=== PATIENT | male | born 1970 | race Caucasian/White ===

== ENCOUNTER 2023-12-08 07:02 | Outpatient (OUT) | payer OTHER, SELFPAY ==
[2023-12-08 07:25] LABS: Basophils Absolute Auto 0.1 10^3/uL (0.0-0.1); Basophils Percent Auto 1.2 % (0.2-2.0); Eosinophils Absolute Auto 0.5 10^3/uL (0.0-0.7); Eosinophils Percent Auto 7.2 % (0.9-7.0); Hematocrit 45.5 % (42.0-54.0); Hemoglobin 15.8 g/dL (14.0-18.0); Immature Granulocytes Abs Auto 0.01 10^3/uL (0.00-0.03); Immature Granulocytes Pct Auto 0.1 % (0.0-0.5); Lymphocytes Absolute Auto 2.4 10^3/uL (1.2-3.8); Lymphocytes Percent Auto 34.6 % (20.5-60.0); Mean Corpuscular HGB Conc 34.7 g/dL (29.9-35.2); Mean Corpuscular Volume 92.3 fL (80.0-94.0); Mean Platelet Volume 9.3 fL (9.5-13.5); Monocytes Absolute Auto 0.6 10^3/uL (0.3-0.8); Monocytes Percent Auto 8.4 % (1.7-12.0); Neutrophils Absolute Auto 3.3 10^3/uL (1.4-6.5); Neutrophils Percent Auto 48.5 % (43.0-75.0); Platelet Count 228 10^3/uL (150-450); Red Blood Count 4.93 10^6/uL (4.70-6.10); Red Cell Distribution Width 12.8 % (11.0-15.0); White Blood Count 6.8 10^3/uL (4.0-11.0)
[2023-12-08 09:15] LABS: Alanine Aminotransferase 49 U/L (16-63); Albumin Globulin Ratio 1.1; Alkaline Phosphatase 88 U/L (46-116); Anion Gap 15.6; Aspartate Amino Transferase 29 U/L (15-37); BUN Creatinine Ratio 14.3; Bilirubin Total 0.9 mg/dL (0.2-1.0); Calcium 9.4 mg/dL (8.5-10.1); Chloride 106 mmol/L (98-107); Chol HDL Ratio 5.6; Cholesterol 202 mg/dL (<=200); Estimated GFR (African America >60 (>=60); Estimated GFR (Non-African Ame >60 (>=60); Globulin 3.6 g/dL; Glucose 109 mg/dL (74-106); HDL Cholesterol 36 mg/dL (40-60); Potassium 3.6 mmol/L (3.5-5.1); Sodium 145 mmol/L (136-145); Thyroid Stimulating Hormone 1.993 uIU/mL (0.358-3.740); Total Protein 7.6 g/dL (6.4-8.2); Triglycerides 96 mg/dL (<=150); VLDL CHOLESTEROL 19.2 mg/dL
[2023-12-08 09:29] LABS: Prostate Specific Antigen Scrn 3.16 ng/mL (<=4.00)
== END 2023-12-08 07:03 | disposition home or self-care (01) ==
PROVIDERS: PCP Nurse Practitioner; Visit Provider Nurse Practitioner
DX: Z00.00 Encounter for general adult medical examination without abnormal findings (principal)
CPT/HCPCS: 36415; 80053; 80061; 84443; 85025; G0103

== ENCOUNTER 2024-03-15 10:35 | Outpatient (OUT) | payer OTHER, SELFPAY ==
--- OUTSIDE RECORDS SUMMARY | 2024-03-15 10:39 | XMS_ITS | CCD ---
Author Organization [facility] Team Providers Care Operations Intelligence Superintendent Name Role Phone EBRAHEIM, JUSTYN Unavailable Unavailable EBRAHEIM, JUSTYN Unavailable Unavailable KHAN, JULIANNA Unavailable Unavailable KHAN, JULIANNA Unavailable Unavailable [place] Unavailable Unavailable EBRAHEIM, JUSTYN Unavailable Unavailable [place] Unavailable Unavailable CASABIANCA AMBER Unavailable Unavailable ANTOINE, BEATRIZ Unavailable Unavailable ANTOINE, BEATRIZ Unavailable Unavailable KHAN, JULIANNA Unavailable Unavailable KHAN, JULIANNA Unavailable Unavailable ANTOINE, BEATRIZ Unavailable Unavailable ANTOINE, BEATRIZ Unavailable Unavailable KHAN, JULIANNA Unavailable Unavailable KHAN, JULIANNA Unavailable Unavailable DANNIE, KALPESH M Unavailable Unavailable DANNIE, KALPESH M Unavailable Unavailable UNKNOWN, PHYSICIAN Unavailable Unavailable KHAN, JULIANNA Unavailable Unavailable DANNIE, KALPESH M Unavailable Unavailable DANNIE, KALPESH M Unavailable Unavailable DANNIE, KALPESH M Unavailable Unavailable KHAN, JULIANNA Unavailable Unavailable DANNIE, KALPESH M Unavailable Unavailable DANNIE, KALPESH M Unavailable Unavailable KHAN, JULIANNA Unavailable Unavailable KHAN, JULIANNA Unavailable Unavailable Kin [place] Unavailable KHAN ., DR JULIANNA Brooks Admitting Unavailable KHAN ., DR JULIANNA Brooks Attending Unavailable KHAN ., DR JULIANNA Brooks Primary Care Unavailable KHAN ., DR JULIANNA Brooks Admitting Unavailable KHAN ., DR JULIANNA Brooks Attending Unavailable KHAN ., DR JULIANNA Brooks Primary Care Unavailable KHAN ., DR JULIANNA Brokos Consulting Unavailable Tiara Carter Attending Unavailable Tiara Carter Attending Unavailable Tiara Carter Attending Unavailable Tiara Carter Attending Unavailable Allergies Allergy Classification Reported Allergen(s) Allergy Type Date of Onset Reaction(s) Facility (1 source) No Known Medication Allergies; Translations: [No Known Medication Allergies] Propensity to adverse reactions (disorder) [facility] Repository Medications Current Medications Medication Drug Class(es) Dates Sig (Normalized) Sig (Original) bisoprolol fumarate 10 mg / hydroCHLOROthiazide 6.25 mg oral tablet (2 sources) Thiazide Diuretic, beta-Adrenergic Casey take 1 tablet by mouth every twenty-four hours Bisoprolol-hydro CHLOROthiazide 10-6.25 MG 1 tablet Orally Once a day Active diclofenac sodium 0.01 mg/mg topical gel (2 sources) Nonsteroidal Anti-inflammatory Drug Start: 06-18-2020 Diclofenac Sodium 1 % apply a pea sized amount to the affected area two to four times a day Transdermal for 30 days Jun, Active ibuprofen 800 mg oral tablet (2 sources) Nonsteroidal Anti-inflammatory Drug take 1 tablet by mouth three times daily at mealtime as needed Ibuprofen 800 MG TAKE 1 TABLET BY MOUTH THREE TIMES A DAY WITH FOOD OR MILK NEEDED for 30 Active latanoprost 0.05 mg/ml ophthalmic solution (2 sources) Prostaglandin Analog take 1 drop(s) into the eye(s) once daily in the evening Latanoprost 0.005 % 1 drop into affected eye in the evening Ophthalmic Once a day Active lidocaine 0.05 mg/mg medicated patch (2 sources) Antiarrhythmic, Amide Local Anesthetic Start: 11-05-2020 apply 1 dose transdermal route once daily Lidocaine 5 % Cut patch to size and apply to affected area Externally Once a day for 30 days Oct, Active Multi Complete (2 sources) Multi Complete Active Tumersaid (2 sources) Tumersaid Active Vitamin D3 (2 sources) Vitamin D3 Active Completed/Discontinued Medications Medication Drug Class(es) Dates Sig (Normalized) Sig (Original) gabapentin 300 mg oral capsule (2 sources) Anti-epileptic Agent Start: 01-06-2021 take 1 capsule by mouth three times daily Gabapentin 300 MG 1 capsule Orally three times daily for 30 day(s) December, Not-Taking Problems Active Problems Problem Classification Problem Date Documented Da te Episodic/Chronic Essential hypertension (6 sources) Hypertensive disorder; Translations: [Hypertension, unspecified] Onset: 11-17-2022 Chronic External cause codes: Natural/environment (1 source) Exposure to other specified factors, initial encounter; Translations: [EXPOSURE TO OTHER SPECIFIED FACTORS, INITIAL ENCOUNTER] Onset: 03-15-2018 External cause codes: Unspecified (1 source) Civilian activity done for income or pay; Translations: [CIVILIAN ACTIVITY DONE FOR INCOME OR PAY] Onset: 03-15-2018 Fracture of upper limb (17 sources) Fracture of unspecified phalanx of left ring finger, initial encounter for closed fracture; Translations: [Displaced fracture of middle phalanx of left ring finger, subsequent encounter for fracture with routine healing] Onset: 03-15-2018 Episodic Open wounds of extremities (4 sources) Laceration without foreign body of right forearm, subsequent encounter; Translations: [LACERATION W/O FOREIGN BODY OF RIGHT FOREARM, SUBS ENCNTR] Onset: 06-07-2018 Episodic Other connective tissue disease (1 source) Arthrodesis status; Translations: [ARTHRODESIS STATUS] Onset: 04-26-2018 Episodic Other nervous system disorders (2 sources) Chronic pain; Translations: [Other chronic pain] Chronic Other nervous system disorders (2 sources) Other chronic pain; Translations: [Chronic pain G89.29] Onset: 05-04-2021 Resolved: 05-17-2021 Chronic Other nutritional; endocrine; and metabolic disorders (1 source) Overweight; Translations: [OVERWEIGHT] Onset: 11-26-2022 Episodic Other nutritional; endocrine; and metabolic disorders (1 source) Body mass index (BMI) 28.0-28.9, adult; Translations: [BODY MASS INDEX BMI 28.0-28.9 ADULT] Onset: 11-26-2022 Episodic Spondylosis; intervertebral disc disorders; other back problems (4 sources) Lumbosacral spondylosis without myelopathy; Translations: [Spondylosis without myelopathy or radiculopathy, lumbosacral region] Onset: 05-04-2021 Resolved: 05-17-2021 Chronic Unclassified (2 sources) Unknown / UNK(Unknown) Onset: 03-15-2018 Past or Other Problems Problem Classification Problem Date Documented Da te Episodic/Chronic Spondylosis; intervertebral disc disorders; other back problems (6 sources) Neck pain; Translations: [Cervicalgia] Onset: 05-04-2021 Resolved: 05-17-2021 Episodic Results Test Name Value Interpretation Reference Range Facility Family Medicine Office/Clini c Noteon 03-13-2024 Family Medicine Office/Clinic Note Family Medicine Office/Clinic Note HPI Staff Mendez is a 53 year old male presenting with Onset about 2 years ago just been getting worse Location: left elbow Duration: Characteristics:_ dry skin Aggravated by: bending arm all the way he can not Relieved by: ice, heat, Biofreeze helped a little bit Timing:_ Associated Symptoms:_ none History of Present Illness left elbow pain, dry patch on left elbow, impacted cerumen Review of Systems PHQ Score Initial Depression Screen Score: 0 SCORE Physical Exam Vitals & Measurements T: 36.7 ?C(Temporal Artery) HR: 68(Peripheral) RR: 18 BP: 136/84 SpO2: 98% HT: 71 in HT: 180.3 cm WT: 91.4 kg WT: 201.08 lb BMI: 28.12 General: alert, no acute distress ENMT: oral mucosa moist, no pharyngeal erythema or exudate Cardiovascular: regular rate and rhythm, normal peripheral perfusion Respiratory: Lungs CTA, respirations non labored Extremities: no deformity, no trauma Neurological: oriented x 4, LOC appropriate for age, CN II-XII intact, motor strength equal & normal bilaterally, speech normal limited ROM of left elbow due to pain, small dry patch on left elbow Assessment/Plan 1. Left elbow pain (M25.522: Pain in left elbow) pt c/o left elbow pain that is worsening. will order x ray, medrol dose pack and meloxicam. may consider referral to pain management for injections or ortho. rtc 3 weeks. pt also has a dry patch of skin on left elbow. samples of cerave provided. Ordered: meloxicam, 15 mg = 1 tab(s), Oral, Daily, # 30 tab(s), Refills(s) 0, Pharmacy: [facility] #[id number], 180.3, cm, 03/12/24 17:36:00 EDT, Height/Length Dosing, 91.4, kg, 03/12/24 17:36:00 EDT, Weight Dosing methylPREDNISolone, = 1 packet(s), Oral, As Directed, as directed on package labeling, X 6 day(s), # 21 tab(s), Refills(s) 0, Pharmacy: [facility]acy #[id number], 180.3, cm, 03/12/24 17:36:00 EDT, Height/Length Dosing, 91.4, kg, 03/12/24 17:36:00 EDT, Weight Dosing 2. Cerumen impaction (H61.20: Impacted cerumen, unspecified ear) pt c/o not being able to hear. both ears are impacted with cerumen. pt will use debrox and return in 3 weeks for ear irrigation. 3. BMI 28.0-28.9,adult (Z68.28: Body mass index [BMI] 28.0-28.9, adult) Orders: fluconazole, See Instructions, TAKE 1 TABLET BY MOUTH EVERY DAY FOR 5 DAYS, # 5 tab(s), Refills(s) 2, Pharmacy: [facility]/pharmacy #[id number], 180.3, cm, 11/14/23 15:40:00 EDT, Height/Length Dosing, 92.1, kg, 11/14/23 15:40:00 EDT, Weight Dosing omeprazole, See Instructions, TAKE 1 CAPSULE BY MOUTH EVERY DAY, # 30 cap(s), Refills(s) 2, Pharmacy: [id number], 180.3, cm, 11/14/23 15:40:00 EDT, Height/Length Dosing, 92.1, kg, 11/14/23 15:40:00 EDT, Weight Dosing Follow-up No qualifying data available Problem List/Past Medical History Ongoing Acid reflux BMI 28.0-28.9,adult Cerumen impaction Colonoscopy refused Fluid level behind tympanic membrane of both ears Hypertension Impingement of shoulder Left elbow pain Migraine Plantar wart Screening for hyperlipidemia Screening for prostate cancer Screening for thyroid disorder Sinusitis Smoker Wellness examination Historical No qualifying data Procedure/Surgical History Cholecystectomy, Fracture, History of knee surgery, Nerve blocks, infiltrations and injections, Repair of tendon, Thumb surgery. Medications bisoprolol-hydrochloroth iazide 10 mg-6.25 mg Tab, 1 tab(s), Oral, Daily, 3 refills Imitrex 50 mg Tab, See Instructions losartan 50 mg Tab, 50 mg= 1 tab(s), Oral, Daily, 3 refills Medrol 4 mg Tab, 1 packet(s), Oral, As Directed meloxicam 15 mg Tab, 15 mg= 1 tab(s), Oral, Daily Allergies No Known Medication Allergies Social History Tobacco 10 or more cigarettes (1/2 pack or more)/day in last 30 days, Smoker, current status unknown Tobacco Use:. Never Smokeless Tobacco Use:. Cigarettes, Household tobacco concerns: No., 03/12/2024 Family History Primary malignant neoplasm of bone: Mother. Primary malignant neoplasm of brain: Father. Immunizations Vaccine Date Status SARS-CoV-2 (COVID-19) mRNA BNT-162b2 vax 08/16/2021 Recorded SARS-CoV-2 (COVID-19) mRNA BNT-162b2 vax 11/23/2020 Recorded SARS-CoV-2 (COVID-19) mRNA BNT-162b2 vax 11/01/2020 Recorded Normal [facility] Comment on above: Result Comment: Electronically Signed By : Tiara Duque\.br\Date and Time Signed: 03/13/24 09:05 EDT Lab Reportson 12-10-2023 Lab Reports [id number]#1.00TIF [facility] Physician Orderon 11-15-2023 Physician Order [id number] F [facility] Ambulatory Visit Summaryon 0 11-14-2023 Ambulatory Visit Summary ANDREA GAMBOA :1970 Visit Date:11/14/2023 Ambulatory Visit Instructions Your Diagnosis BMI 28.0-28.9,adult Smoker Your Care Team Attending Physician - Tiara Duque Primary Care Physician - Tiara Duque This Is Your Medications List bisoprolol-hydrochloroth iazide (bisoprolol-hydrochlorot hiazide 10 mg-6.25 mg Tab) losartan (losartan 50 mg Tab) sumatriptan (Imitrex 50 mg Tab) Procedures Performed Cholecystectomy, Fracture, History of knee surgery, Nerve blocks, infiltrations and injections, Repair of tendon, Thumb surgery. Discharge Vitals Heart Rate (Peripheral) 80 Respiratory Rate 16 Blood Pressure 106/70 Height 180.3 cm Height 71 in Weight 92.1 kg Weight 202.62 lb BMI 28.33 Medications What How Much When Instructions Unchanged bisoprolol-hydrochloroth iazide (bisoprolol-hydrochlorot hiazide 10 mg-6.25 mg Tab) 1 Tablets By Mouth Every day Duration: 90 Days Unchanged losartan (losartan 50 mg Tab) 1 Tablets By Mouth Every day Duration: 90 Days Unchanged sumatriptan (Imitrex 50 mg Tab) See instructions one orally as needed for migraine may repeat in 2 hrs no more thatn 2 in 24 hrs or 5 in one week Allergies No Known Medication Allergies Problems Ongoing - Any problem that you are currently receiving treatment for. Fluid level behind tympanic membrane of both ears Hypertension Impingement of shoulder Migraine Plantar wart Sinusitis Smoker Patient Survey You may receive a survey via text or e-mail asking about your office visit. Please share your experience with us by completing your survey. We appreciate your feedback and thank you for choosing us for your care. Normal [facility] Family Medicine Office/Clini c Noteon 11-14-2023 Family Medicine Office/Clinic Note HPI Staff Andrea is a 53 year old male presenting for wellness visit Health Maintenance: Colonoscopy: no, patient refuses at this time PSA: no Last Labs: 11/17/22 Onset: 6 months Intermittent epigastric pain feeling like there is a lot of pressure/cramping will start sweating, will drink a pop and is able to burp and relieve the pressure and pain does improve. Has tried tums doesn't help. pt would like to know if he can get a refill on fluconazole 100mg tablet 1 tab daily for 5 days last filled 2021 History of Present Illness pt presents today for wellness visit. will have labs done at [facility] on sunday Review of Systems PHQ Score Initial Depression Screen Score: 0 SCORE Physical Exam Vitals & Measurements HR: 80(Peripheral) RR: 16 BP: 106/70 SpO2: 100% HT: 71 in HT: 180.3 cm WT: 92.1 kg WT: 202.62 lb BMI: 28.33 General: alert, no acute distress ENMT: oral mucosa moist, no pharyngeal erythema or exudate Cardiovascular: regular rate and rhythm, normal peripheral perfusion Respiratory: Lungs CTA, respirations non labored Extremities: no deformity, no trauma Neurological: oriented x 4, LOC appropriate for age, CN II-XII intact, motor strength equal & normal bilaterally, speech normal Assessment/Plan 1. Wellness examination (Z00.00: Encounter for general adult medical examination without abnormal findings) pt presents today for wellness visit. pt c/o epigastric pain. will order omeprazole if no improvement in 1 month will refer to GI for EGD. 2. Screening for hyperlipidemia (Z13.220: Encounter for screening for lipoid disorders) Lipid order provided 3. Screening for prostate cancer (Z12.5: Encounter for screening for malignant neoplasm of prostate) PSA order provided 4. Screening for thyroid disorder (Z13.29: Encounter for screening for other suspected endocrine disorder) TSH order provided 5. Hypertension (I10: Essential (primary) hypertension) BP at goal today 6. Acid reflux (K21.9: Gastro-esophageal reflux disease without esophagitis) omeprazole sent to pharmacy 7. Colonoscopy refused (Z53.20: Procedure and treatment not carried out because of patient's decision for unspecified reasons) refusing colon cancer screening 8. BMI 28.0-28.9,adult (Z68.28: Body mass index [BMI] 28.0-28.9, adult) BMI education complete Ordered: omeprazole, 40 mg = 1 cap(s), Oral, Daily, # 90 cap(s), Refills(s) 0, [id number] 180.3, cm, 11/14/23 15:40:00 EDT, Height/Length Dosing, 92.1, kg, 11/14/23 15:40:00 EDT, Weight Dosing 9. Smoker (F17.200: Nicotine dependence, unspecified, uncomplicated) consider not smoking Ordered: omeprazole, 40 mg = 1 cap(s), Oral, Daily, # 90 cap(s), Refills(s) 0, Pharmacy: [facility]/pharmacy #[id number], 180.3, cm, 11/14/23 15:40:00 EDT, Height/Length Dosing, 92.1, kg, 11/14/23 15:40:00 EDT, Weight Dosing Orders: fluconazole, See Instructions, TAKE 1 TABLET BY MOUTH EVERY DAY FOR 5 DAYS, # 5 tab(s), Refills(s) 2, Pharmacy: [facility]/pharmacy #[id number], 180.3, cm, 11/14/23 15:40:00 EDT, Height/Length Dosing, 92.1, kg, 11/14/23 15:40:00 EDT, Weight Dosing Follow-up No qualifying data available Problem List/Past Medical History Ongoing Acid reflux Colonoscopy refused Fluid level behind tympanic membrane of both ears Hypertension Impingement of shoulder Migraine Plantar wart Screening for hyperlipidemia Screening for prostate cancer Screening for thyroid disorder Sinusitis Smoker Wellness examination Historical No qualifying data Procedure/Surgical History Cholecystectomy, Fracture, History of knee surgery, Nerve blocks, infiltrations and injections, Repair of tendon, Thumb surgery. Medications bisoprolol-hydrochloroth iazide 10 mg-6.25 mg Tab, 1 tab(s), Oral, Daily, 3 refills fluconazole 100 mg Tab, See Instructions, 2 refills Imitrex 50 mg Tab, See Instructions losartan 50 mg Tab, 50 mg= 1 tab(s), Oral, Daily, 3 refills omeprazole 40 mg Cap-DR, 40 mg= 1 cap(s), Oral, Daily Allergies No Known Medication Allergies Social History Tobacco 10 or more cigarettes (1/2 pack or more)/day in last 30 days, Smoker, current status unknown Tobacco Use:. Never Smokeless Tobacco Use:. Cigarettes, Household tobacco concerns: No., 11/14/2023 Family History Primary malignant neoplasm of bone: Mother. Primary malignant neoplasm of brain: Father. Immunizations Vaccine Date Status SARS-CoV-2 (COVID-19) mRNA BNT-162b2 vax 08/16/2021 Recorded SARS-CoV-2 (COVID-19) mRNA BNT-162b2 vax 11/23/2020 Recorded SARS-CoV-2 (COVID-19) mRNA BNT-162b2 vax 11/01/2020 Recorded [facility] Comment on above: Result Comment: Electronically Signed By : Tiara Duque\.br\Date and Time Signed: 11/14/23 16:03 EDT Ambulatory Visit Summaryon 1 09-18-2022 Ambulatory Visit Summary ANDREA GAMBOA :1970 Visit Date:07/18/2023 Ambulatory Visit Instructions Your Diagnosis Hypertension Sinusitis Fluid level behind tympanic membrane of both ears BMI 28.0-28.9,adult Smoker Your Care Team Attending Physician - Tiara Duque Primary Care Physician - JULIANNA KHAN MD This Is Your Medications List bisoprolol-hydrochloroth iazide (bisoprolol-hydrochlorot hiazide 10 mg-6.25 mg Tab) losartan (losartan 50 mg Tab) sumatriptan (Imitrex 50 mg Tab) Procedures Performed Cholecystectomy, Fracture, History of knee surgery, Nerve blocks, infiltrations and injections, Repair of tendon, Thumb surgery. Discharge Vitals Temperature (Tympanic) 36.5 ?C Heart Rate (Peripheral) 68 Respiratory Rate 18 Blood Pressure 134/78 Height 180.3 cm Height 71 in Weight 93.8 kg Weight 206.36 lb BMI 28.85 What to do next Scheduled Follow-Up Appointments Sunday 4:00 PM EDT With: Tiara Duque Where: [facility] Family Medicine Debra Normal [facility] Family Medicine Office/Clini c Noteon 07-18-2023 Family Medicine Office/Clinic Note HPI Staff Andrea is a 53 year old male presenting to establish care Establish Care: History: Any previous diagnosis: HTN, migraine History of seeing any specialist: When was your last doctors visit: Last provider: Dr Khan Any recent labs: 11/17/22 Health Maintenance UTD: Colonoscopy: no, doesn't want one PSA: no Acute: Current issues/complaints: pt needs refills on all medication, doesn't check blood pressures at home does have a machine Respiratory C/O: Onset:4 days Body aches: no Chest congestion: no Chills: no Cough: yes getting dizzy with coughing Sputum production: yes white Sore throat: yes Ear complaints: yes full, loss of hearing Eye itching/watering: no Fever: no Headache: yes Nasal congestion: yes Nasal discharge: yes Poor appetite: no Reduced activity: no Sinus pain/pressure: yes Sneezing: no Wheezing: no Ill contacts: no Remedies tried: NyQuil Questions/Concerns: History of Present Illness pt presents today to establish. needs refills. has sinus infection sympotms Review of Systems PHQ Score Initial Depression Screen Score: 0 SCORE ROS - Provider Constitutional: no fever, no chills, no sweats, no fatigue Respiratory: no shortness of breath, no cough, no orthopnea, no wheezing. Cardiovascular: no chest pain, no palpitations, no edema. Neurologic: no headache, no dizziness, no numbness, no weakness. nasal congestion, ear drainage Physical Exam Vitals & Measurements T: 36.5 ?C(Tympanic) HR: 68(Peripheral) RR: 18 BP: 134/78 SpO2: 98% HT: 71 in HT: 180.3 cm WT: 93.8 kg WT: 206.36 lb BMI: 28.85 General: alert, no acute distress ENMT: oral mucosa moist, no pharyngeal erythema or exudate Cardiovascular: regular rate and rhythm, normal peripheral perfusion Respiratory: Lungs CTA, respirations non labored Extremities: no deformity, no trauma Neurological: oriented x 4, LOC appropriate for age, CN II-XII intact, motor strength equal & normal bilaterally, speech normal Assessment/Plan 1. Hypertension (I10: Essential (primary) hypertension) BP at goal today. will refill meds. pt had labs in November. will return in november for wellness visit Ordered: amoxicillin, 875 mg = 1 tab(s), Oral, BID, X 7 day(s), # 14 tab(s), Refills(s) 0, Pharmacy: [facility]/pharmacy #[id number], 180.3, cm, 07/18/23 16:16:00 EST, Height/Length Dosing, 93.8, kg, 07/18/23 16:16:00 EST, Weight Dosing methylPREDNISolone, = 1 packet(s), Oral, As Directed, as directed on package labeling, X 6 day(s), # 21 tab(s), Refills(s) 0, Pharmacy: [facility]/pharmacy #[id number], 180.3, cm, 07/18/23 16:16:00 EST, Height/Length Dosing, 93.8, kg, 07/18/23 16:16:00 EST, Weight Dosing 2. Sinusitis (J32.9: Chronic sinusitis, unspecified) pt c/o nasal congestion sinus pressure in 4 days Ordered: amoxicillin, 875 mg = 1 tab(s), Oral, BID, X 7 day(s), # 14 tab(s), Refills(s) 0, Pharmacy: [facility]/pharmacy #[id number], 180.3, cm, 07/18/23 16:16:00 EST, Height/Length Dosing, 93.8, kg, 07/18/23 16:16:00 EST, Weight Dosing methylPREDNISolone, = 1 packet(s), Oral, As Directed, as directed on package labeling, X 6 day(s), # 21 tab(s), Refills(s) 0, Pharmacy: [facility]/pharmacy #[id number], 180.3, cm, 07/18/23 16:16:00 EST, Height/Length Dosing, 93.8, kg, 07/18/23 16:16:00 EST, Weight Dosing 3. Fluid level behind tympanic membrane of both ears (H65.93: Unspecified nonsuppurative otitis media, bilateral) REINALDO TM moderate amount of fluid Ordered: amoxicillin, 875 mg = 1 tab(s), Oral, BID, X 7 day(s), # 14 tab(s), Refills(s) 0, [id number] 180.3, cm, 07/18/23 16:16:00 EST, Height/Length Dosing, 93.8, kg, 07/18/23 16:16:00 EST, Weight Dosing methylPREDNISolone, = 1 packet(s), Oral, As Directed, as directed on package labeling, X 6 day(s), # 21 tab(s), Refills(s) 0, [id number] 180.3, cm, 07/18/23 16:16:00 EST, Height/Length Dosing, 93.8, kg, 07/18/23 16:16:00 EST, Weight Dosing 4. BMI 28.0-28.9,adult (Z68.28: Body mass index [BMI] 28.0-28.9, adult) BMI education compelte Ordered: amoxicillin, 875 mg = 1 tab(s), Oral, BID, X 7 day(s), # 14 tab(s), Refills(s) 0, [id number], 180.3, cm, 07/18/23 16:16:00 EST, Height/Length Dosing, 93.8, kg, 07/18/23 16:16:00 EST, Weight Dosing methylPREDNISolone, = 1 packet(s), Oral, As Directed, as directed on package labeling, X 6 day(s), # 21 tab(s), Refills(s) 0, [id number], 180.3, cm, 07/18/23 16:16:00 EST, Height/Length Dosing, 93.8, kg, 07/18/23 16:16:00 EST, Weight Dosing 5. Smoker (F17.200: Nicotine dependence, unspecified, uncomplicated) consider not smoking Ordered: amoxicillin, 875 mg = 1 tab(s), Oral, BID, X 7 day(s), # 14 tab(s), Refills(s) 0, [id number] 180.3, cm, 07/18/23 16:16:00 EST, Height/Length Dosing, 93.8, kg, 07/18/23 16:16:00 EST, Weight Dosing methylPREDNISolone, = 1 packet(s), Oral, As Directed, as directed on package labeling, X 6 day(s), # 21 tab(s), Refills(s) 0, Pharmacy: [facility]/pharmacy #[id number], 180.3, cm, 12 (more content not included)... Normal [facility] Comment on above: Result Comment: Electronically Signed By : Raul SOLITARIO, Tiara Medrano\.br\Date and Time Signed: 07/18/23 16:31 EST CBC AUTO DIFFon 11-17-2022 BASO # 0.1 103/ul Normal 0.0-0.1 [facility] Comment on above: Performed By: #### CBC #### [facility] [address] [place] [address] Dr. Tanesha Turner Basophils/100 WBC (Bld) 1.1 % Normal 0.2-2.0 [facility] Health Comment on above: Performed By: #### CBC #### [facility] [address] [address] [address] Tanesha Turner EO # 0.5 103/ul Normal 0.0-0.7 [facility] Comment on above: Performed By: #### CBC #### [facility] [address] [place] [address] Dr. Tanesha Turner Eosinophils/100 WBC (Bld) 7.9 % Critically high 0.9-7.0 [facility] Comment on above: Performed By: #### CBC #### [facility] [address] [address] [address] Tanesha Turner Erythrocyte distribution width (RBC) [Ratio] 13.6 % Normal 11.0-15.0 [facility] Comment on above: Performed By: #### CBC #### [facility] [address] [place] [address] Dr. Tanesha Turner Hematocrit (Bld) [Volume fraction] 46.3 % Normal 42.0-54.0 [facility] Comment on above: Performed By: #### CBC #### [facility] [address] [place] [address] Dr. Tanesha Turner Hemoglobin (Bld) [Mass/Vol] 15.9 g/dL Normal 14.0-18.0 [facility] Comment on above: Performed By: #### CBC #### [facility] [address] [place] [address] Dr. Tanesha Turner IG # 0.02 10e3/ul Normal 0.00-0.03 [facility] Comment on above: Performed By: #### CBC #### [facility] [address] [place] [address] Dr. Tanesha Turner IG % 0.3 % Normal 0.0-0.5 [facility] Comment on above: Performed By: #### CBC #### [facility] [address] [place] [address] Dr. Tanesha Turner LYMPH # 2.1 103/ul Normal 1.2-3.8 [facility] Comment on above: Performed By: #### CBC #### [facility] [address] [place] [address] Dr. Tanesha Turner Lymphocytes/100 WBC (Bld) 32.5 % Normal 20.5-60.0 [facility] Comment on above: Performed By: #### CBC #### [facility] [address] [place] [address] Dr. Tanesha Turner MANUAL DIFF REQ NO Normal [facility] Comment on above: Performed By: #### CBC #### [facility] [address] [place] [address] Dr. Tanesha Turner MCH (RBC) [Entitic mass] 31.7 pg Normal 25.9-34.0 [facility] Comment on above: Performed By: #### CBC #### [facility] [address] [place] [address] Dr. Tanesha Turner MCHC (RBC) [Mass/Vol] 34.3 g/dL Normal 29.9-35.2 [facility] Comment on above: Performed By: #### CBC #### [facility] [address] [place] [address] Dr. Tanesha Turner MCV (RBC) [Entitic vol] 92.4 fL Normal 80.0-94.0 [facility] Comment on above: Performed By: #### CBC #### [facility] [address] [place] [address] Dr. Tanesha Turner MONO # 0.6 103/ul Normal 0.3-0.8 [facility] Comment on above: Performed By: #### CBC #### [facility] [address] [place] [address] Dr. Tanesha Turner Monocytes/100 WBC (Bld) 9.2 % Normal 1.7-12.0 [facility] Comment on above: Performed By: #### CBC #### [facility] [address] [place] [address] Dr. Tanesha Turner NEUT # 3.1 103/ul Normal 1.4-6.5 [facility] Comment on above: Performed By: #### CBC #### [facility] [address] [place] [address] Dr. Tanseha Turner Neutrophils/100 WBC (Bld) 49.0 % Normal 43.0-75.0 [facility] Comment on above: Performed By: #### CBC #### [facility] [address] [place] [address] Dr. Tanesha Turner Platelet mean volume (Bld) [Entitic vol] 8.9 fL Critically low 9.5-13.5 [facility] Comment on above: Performed By: #### CBC #### [facility] [address] [place] [address] Dr. Tanesha Turner PLT 223 103/ul Normal 150-450 [facility] Comment on above: Performed By: #### CBC #### [facility] [address] [place] [address] Dr. Tanesha Turner RBC 5.01 106/ul Normal 4.70-6.10 [facility] Comment on above: Performed By: #### CBC #### [facility] [address] [place] [address] Dr. Tanesha Turner WBC 6.3 103/ul Normal 4.0-11.0 [facility] Comment on above: Performed By: #### CBC #### [facility] [address] [address] [address] Tanesha Turner LIPID PROFILEon 11-17-2022 CHOL-HDL RATIO NORM SEE BELOW Normal [facility] Comment on above: Result Comment: 3.3 - 4.4 LOW RISK 4.4 - 7.1 AVERAGE RISK 7.1 - 11.0 MODERATE RISK >11.0 HIGH RISK Performed By: #### C MP, LIPID #### [facility] [address] [address] [address] Tanesha Turner Cholesterol [Mass/Vol] 191 mg/dL Normal <=200 [facility] Comment on above: Performed By: #### CMP, LIPID #### [facility] [address] [address] [address] Tanesha Turner Cholesterol in HDL [Mass/Vol] 29 mg/dL Critically low 40-60 [facility] Comment on above: Performed By: #### CMP, LIPID #### [facility] [address] [address] [address] Tanesha Turner Cholesterol in LDL [Mass/Vol] 115.8 mg/dL Normal [facility] Comment on above: Performed By: #### CMP, LIPID #### [facility] [address] [address] [address] Tanesha Turner Cholesterol.tota l/Cholesterol in HDL [Mass ratio] 6.6 {ratio} Normal [facility] Comment on above: Performed By: #### CMP, LIPID #### [facility] [address] [address] [address] Tanesha Turner HDL NORMAL > or = 60 mg/dl - LO W CARDIOVASCULAR RISK <40 mg/dl - HIGH CARDIOVASCULAR RISK Normal [facility] Comment on above: Performed By: #### CMP, LIPID #### [facility] [address] [address] [address] Tanesha Turner LDL CALC NORMAL SEE BELOW Normal [facility] Comment on above: Result Comment: <100 mg/dl OPTIMAL 100 - 129 mg/dl NEAR OR ABOVE OPTIMAL 130 - 159 mg/dl BORDERLINE HIGH 160 - 189 mg/dl HIGH >190 mg/dl VERY HIGH Performed By: #### C MP, LIPID #### [facility] [address] [address] [address] Tanesha Turner Triglyceride [Mass/Vol] 231 mg/dL Critically high <=150 [facility] Comment on above: Performed By: #### CMP, LIPID #### [facility] [address] [address] [address] Tanesha Turner VLDL CALC 46.2 mg/dL Normal [facility] Comment on above: Performed By: #### CMP, LIPID #### [facility] [address] [address] [address] Tanesha Turner PROF 14(COMP METB)on 023 Albumin [Mass/Vol] 3.8 g/dL Normal 3.4-5.0 [facility] Comment on above: Performed By: #### CMP, LIPID #### [facility] [address] [place] [address] Dr. Tanesha Turner Albumin/Globulin [Mass ratio] 1.1 {ratio} Normal [facility] Comment on above: Performed By: #### CMP, LIPID #### [facility] [address] [place] [address] Dr. Tanesha Turner ALP [Catalytic activity/Vol] 83 U/L Normal 46-116 [facility] Comment on above: Performed By: #### CMP, LIPID #### [facility] [address] [place] [address] Dr. Tanesha Turner ALT [Catalytic activity/Vol] 74 U/L Critically high 16-63 [facility] Comment on above: Performed By: #### CMP, LIPID #### [facility] [address] [address] [address] Tanesha Turner Anion gap [Moles/Vol] 10.3 mmol/L Normal [facility] Comment on above: Performed By: #### CMP, LIPID #### [facility] [address] [address] [address] Tanesha Turner AST [Catalytic activity/Vol] 36 U/L Normal 15-37 [facility] Comment on above: Performed By: #### CMP, LIPID #### [facility] [address] [address] [address] Tanesha Turner Bilirubin [Mass/Vol] 1.3 mg/dL Critically high 0.2-1.0 [facility] Comment on above: Performed By: #### CMP, LIPID #### [facility] [address] [address] [address] Tanesha Turner Calcium [Mass/Vol] 9.2 mg/dL Normal 8.5-10.1 [facility] Comment on above: Performed By: #### CMP, LIPID #### [facility] [address] [address] [address] Tanesha Turner Chloride [Moles/Vol] 105 mmol/L Normal 98-107 [facility] Comment on above: Performed By: #### CMP, LIPID #### [facility] [address] [address] [address] Tanesha Turner CO2 [Moles/Vol] 28.5 mmol/L Normal 21.0-32.0 [facility] Comment on above: Performed By: #### CMP, LIPID #### [facility] [address] [address] [address] Tanesha Turner Creatinine [Mass/Vol] 0.77 mg/dL Normal 0.70-1.30 [facility] Comment on above: Performed By: #### CMP, LIPID #### [facility] [address] [place] [address] Dr. Tanesha Turner EGFR-AF OMANI >60 Normal >=60 [facility] Comment on above: Performed By: #### CMP, LIPID #### [facility] [address] [place] [address] Dr. Tanesha Turner EGFR-NON AF OMANI >60 Normal >=60 [facility] Comment on above: Performed By: #### CMP, LIPID #### [facility] [address] [address] [address] Tanesha Turner Globulin (S) [Mass/Vol] 3.6 g/dL Normal [facility] Comment on above: Performed By: #### CMP, LIPID #### [facility] [address] [address] [address] Tanesha Turner Glucose [Mass/Vol] 105 mg/dL Normal 74-106 [facility] Comment on above: Performed By: #### CMP, LIPID #### [facility] [address] [address] [address] Tanesha Turner Potassium [Moles/Vol] 3.8 mmol/L Normal 3.5-5.1 [facility] Comment on above: Performed By: #### CMP, LIPID #### [facility] [address] [address] [address] Tanesha Turner Protein [Mass/Vol] 7.4 g/dL Normal 6.4-8.2 [facility] Comment on above: Performed By: #### CMP, LIPID #### [facility] [address] [address] [address] Tanesha Turner Sodium [Moles/Vol] 140 mmol/L Normal 136-145 [facility] Comment on above: Performed By: #### CMP, LIPID #### [facility] [address] [address] [address] Tanesha Turner Urea nitrogen [Mass/Vol] 14.0 mg/dL Normal 7.0-18.0 [facility] Comment on above: Performed By: #### CMP, LIPID #### [facility] [address] [address] [address] Tanesha Turner Urea nitrogen/Creatin ine [Mass ratio] 18.2 mg/mg Normal [facility] Comment on above: Performed By: #### CMP, LIPID #### [facility] [address] [address] [address] Tanesha Turner MR lumbar spine wo conon MR lumbar spine wo con [facility] [employer] Other MR lumbar spine wo con [facility] [employer] Other MR lumbar spine wo con [address] [place] [address] [employer] Other MR lumbar spine wo con [address] [employer] Other MR lumbar spine wo con MRI Report [facility]. Other MR lumbar spine wo con Signed [facility] Other MR lumbar spine wo con Patient: Andrea Gamboa MR#: [id number] [facility] Other MR lumbar spine wo con : 1970 Acct:[id number] [facility] Other MR lumbar spine wo con Age/Sex: 50 / M ADM Date: 05/16/21 [facility] Other MR lumbar spine wo con Loc: [facility] Room: Type: [facility] Other MR lumbar spine wo con Attending Dr: Kin Edmonds MD [facility]. Other MR lumbar spine wo con Ordering Provider: Kin Edmonds MD [facility] Other MR lumbar spine wo con Date of Service: 05/16/21 [facility] Other MR lumbar spine wo con MR/MR lumbar spine wo con: Low back pain [facility] Other MR lumbar spine wo con Copies to: Kin Edmonds MD [facility]. Other MR lumbar spine wo con MRI lumbar spine withoutcontrast [facility]. Other MR lumbar spine wo con TECHNIQUE: Multiplanar T1 and T2-weighted imaging of lumbar spine obtained without contrast. [facility]. Other MR lumbar spine wo con HISTORY:Chronic lower back pain with bilateral radiculopathy greater on the RIGHT. [facility]. Other MR lumbar spine wo con COMPARISON:Plain film imaging 01/06/21 [facility]. Other MR lumbar spine wo con Lumbar lordosis is adequate. No listhesis is identified in supine position. No lumbar spine [facility] Other MR lumbar spine wo con fracture is identified. No hydronephrosis is identified. No aortic aneurysm is seen. The distal [facility]. Other MR lumbar spine wo con spinal cord is in adequate position without abnormality. [facility]. Other MR lumbar spine wo con T11-12 level is unremarkable. [facility]. Other MR lumbar spine wo con T12-L1 level is unremarkable. [facility]. Other MR lumbar spine wo con L1-2:Unremarkable [facility]. Other MR lumbar spine wo con L2-3: No disc herniation or central canal stenosis. Mild bilateral neural foraminal narrowing. Mild [facility]. Other MR lumbar spine wo con facet degeneration. [facility]. Other MR lumbar spine wo con L3-4:Moderate diffuse disc bulge. Facet and ligamentum flavum hypertrophy. Minimal central canal [facility]. Other MR lumbar spine wo con stenosis. Mild to moderate bilateral neural foraminal narrowing. [facility]. Other MR lumbar spine wo con L4-5:Mild disc space narrowing and disc desiccation. A diffuse a disc bulge. Facet and ligamentum [facility]. Other MR lumbar spine wo con flavum hypertrophy. Mild central canal stenosis. Moderate bilateral neural foraminal narrowing. [facility]. Other MR lumbar spine wo con L5-S1:Unremarkable [facility]. Other MR lumbar spine wo con MR/MR lumbar spine wo con [facility] Other MR lumbar spine wo con IMPRESSION:Multilevel discovertebral degenerative changes. Neuroforaminal narrowing as above. Patent [facility]. Other MR lumbar spine wo con central canal. No significant central disc herniation. [facility] Other MR lumbar spine wo con Impression dictated by: Sea Reza M.D.05/16/2021 12:01 PM [facility] Other MR lumbar spine wo con Dictation Location: [facility]-- [facility]. Other MR lumbar spine wo con Transcribed By: PWS 05/16/21 1201 [facility] Other MR lumbar spine wo con Dictated By: Sea Reza DO 05/16/21 1144 [facility] Other MR lumbar spine wo con Signed By: [facility]. Other MR lumbar spine wo con 05/16/21 1202 [facility] Other MR lumbar spine wo con [facility] [address] [place] [address] MRI Report Signed Patient: Andrea Gamboa MR#: [id number] : 1970 Acct:[id number] Age/Sex: 50 / M ADM Date: 05/16/21 [facility] Type[facility] Attending Dr: Kin Edmonds MD Ordering Provider: Kin Edmonds MD Date of Service: 05/16/21 MR/MR lumbar spine wo con: Low back pain Copies to: Kin Edmonds MD MRI lumbar spine withoutcontrast TECHNIQUE: Multiplanar T1 and T2-weighted imaging of lumbar spine obtained without contrast. HISTORY:Chronic lower back pain with bilateral radiculopathy greater on the RIGHT. COMPARISON:Plain film imaging 01/06/21 Lumbar lordosis is adequate. No listhesis is identified in supine position. No lumbar spine fracture is identified. No hydronephrosis is identified. No aortic aneurysm is seen. The distal spinal cord is in adequate position without abnormality. T11-12 level is unremarkable. T12-L1 level is unremarkable. L1-2:Unremarkable L2-3: No disc herniation or central canal stenosis. Mild bilateral neural foraminal narrowing. Mild facet degeneration. L3-4:Moderate diffuse disc bulge. Facet and ligamentum flavum hypertrophy. Minimal central canal stenosis. Mild to moderate bilateral neural foraminal narrowing. L4-5:Mild disc space narrowing and disc desiccation. A diffuse a disc bulge. Facet and ligamentum flavum hypertrophy. Mild central canal stenosis. Moderate bilateral neural foraminal narrowing. L5-S1:Unremarkable MR/MR lumbar spine wo con IMPRESSION:Multilevel discovertebral degenerative changes. Neuroforaminal narrowing as above. Patent central canal. No significant central disc herniation. Impression dictated by: Sea Reza M.D.05/16/2021 12:01 PM Dictation Location: [place] [address] Transcribed By: [facility] 05/16/21 1201 Dictated By: Sea Reza DO 05/16/21 1146 Signed By: 05/16/21 1201 Normal [facility] XR lumbar spine AP/LAT/FLX/E XTon 01-06-2021 XR lumbar spine AP/LAT/FLX/EXT [facility] [address] [place] [address] XRay Report Signed Patient: Andrea Gamboa MR#: [id number] : 1970 Acct:[id number] Age/Sex: 50 / M ADM Date: 01/06/21 Loc: [facility] Room: Type: [facility] Attending Dr: Kin Edmonds MD Ordering Provider: Kin Edmonds MD Date of Service: 01/06/21 XR/XR lumbar spine AP/LAT/FLX/EXT: PAIN ([id number]) XR/XR cerv spine AP/LAT/FLX/EXT: PAIN Copies to: Kin Edmonds MD Cervical spine and lumbar spine 01/06/2021. CLINICAL DATA: Neck pain with radiation to the right upper extremity. Low back pain. CERVICAL SPINE FINDINGS: 4 standing views of the cervical spine were obtained including lateral views in the neutral, flexion, and extension positions. There is mild cervical spinal curvature with the apex to the right. Vertebral alignment is normal and remains intact with flexion and extension. The intervertebral disc spaces are intact. Minimal discovertebral degenerative changes are identified. Mild facet arthritis is also seen. XR/XR cerv spine AP/LAT/FLX/EXT IMPRESSION: Mild curvature. Normal vertebral alignment and no instability with flexion or extension. Minimal discovertebral degenerative changes and mild facet arthritis. LUMBAR SPINE FINDINGS: 4 standing views of the lumbar spine were obtained including lateral views in the neutral, flexion, and extension positions. There may be L5 spondylolysis. Vertebral alignment is normal and remains intact with flexion and extension. Mild disc space narrowing and discovertebral degenerative changes are identified. Facet arthritis is also seen in the lower lumbar spine. IMPRESSION: Possible L5 spondylolysis. Normal vertebral alignment and no instability with flexion or extension. Mild disc space narrowing and discovertebral degenerative changes. Facet arthritis in the lower lumbar spine. Impression dictated by: Juan Chávez Jr., M.D.01/06/2021 6:13 PM Dictation Location: [place] [address] Transcribed By: [facility] 01/06/211812 Dictated By: Juan Chávez Jr, MD 01/06/211807 Signed By: 01/06/211812 [facility] OPERATIVE REPORTon 9 OPERATIVE REPORT NAME: ANDREA GAMBOA MR#: [id number] SURGEON: Marianne Gastelum MD DATE OF SURGERY: 04/07/2019 OPERATIVE REPORT PREOPERATIVE DIAGNOSES: 1. Lumbar degenerative disk disease. 2. Back pain. POSTOPERATIVE DIAGNOSES: 1. Lumbar degenerative disk disease. 2. Back pain. OPERATION: Right L4-5 epidural steroid injection. MIXER TENDER: None. ANESTHESIA: Local. ESTIMATED BLOOD LOSS: Minimal. COMPLICATIONS: None. SPECIMENS: None. DRAINS: None. NARRATIVE: Briefly, this is a 48-year-old male who presented to the clinic with ongoing back pain. He had x-rays and an MRI showing degenerative disk disease at L4-5. Risks, benefits and alternatives to the epidural steroid injection were discussed with the patient at length. DESCRIPTION OF PROCEDURE: He was identified in the preoperative area and the operative site was confirmed. He was brought into the operating room where a time-out was performed. He was then positioned in prone position and all bony prominences were well padded. The back was then prepped and draped in the sterile fashion and the starting point was identified using AP x-rays. Lidocaine was injected into the skin and subcutaneous tissues and musculature and the paraspinals. Next, a 19 gauge needle was used to access the skin and a Tuohy needle with grasp vial was placed into the epidural space using primarily a loss of resistance technique. At this point, 80 mg of Depo-Medrol was placed into the epidural space after confirming it was not a wet tap. Needle was withdrawn. Sterile dressings were placed on top of the wounds. The patient was then taken to PACU in stable condition under the supervision of Anesthesia. [facility] PT NAME: ANDREA GAMBOA MR#: [id number] [address] [place], [place] [address] ACCT: [id number] : 70 OPERATIVE REPORT MARIANNE GASTELUM MD BP/MODL/[id number] E/S: Marianne Gastelum MD 04/08/19 0809 Electronically Signed [facility] PT NAME: ANDREA GAMBOA MR#: [id number] [address] [place], [place] [address] ACCT: [id number] : [birth year] OPERATIVE REPORT Normal [facility] HAND LEFT 2 VWSon 06-07-2018 HAND LEFT [address] [address] [place] [id number] ==Patient Name: ANDREA GAMBOA : 1970ex: MAge: Race: WhiteMRN: [id number]. Location: 84Patient Status: Date: 06/07/2018 8:35:00 AMCompleted Date: 06/07/2018 08:36 AMRequesting Provider: KALPESH PANDEY Attending Provider: Report Copy To: Signs & Symptoms: S62.625D Disp fx of middle phalanx of left ring finger, 7thD [id number]: AthenaComments: , Views (X-RAY, HAND): PA, Lateral , Views (X-RAY, HAND): PA, Lateral , , , Ordering Provider - KALPESH DANNIE PA-C , Exam: HAND LEFT 2 VWSAccession #: [id number] =========HAND LEFT 2 S 06/07/2018 8:36 AM EDT SIGNS AND SYMPTOMS: S62.625D Disp fx of middle phalanx of left ring finger, 7thD I10 TECHNOLOGIST COMMENTS: Patient states injured x 03/21/2018 ortho follow up of left hand QUESTION FOR THE RADIOLOGIST: , Views (X-RAY, HAND): PA, Lateral , Views (X-RAY, HAND): PA, Lateral , , , Ordering Savannah DALLAS-C , PROTOCOL: AP(PA) and Lateral views were obtained. COMPARISON: May 17, 2018 FINDINGS: Soft tissues:Unchanged Bones:Unchanged Joints:Unchanged IMPRESSION: Healing middle phalanx fracture of the ring finger and small finger in good alignment, with old deformities as before Electronically signed by:Korey Quispe. Transcribed by: [email or web address], User Resident: Electronically Signed by: KOREY QUISPE @ 06/07/2018 09:01 AM Normal [facility] Comment on above: Order Comment: , Views (X-RAY, HAND): PA , Lateral , Views (X-RAY, HAND): PA, Lateral , , , Ordering Savannah DALLAS-C , HAND LEFT 2 Son 05-17-2018 HAND LEFT [address] [facility] [address] [place] [address] ==Patient Name: ANDREA GAMBOA : 1970ex: MAge: Race: WhiteMRN: [id number]. Location: 84Patient Status: OVisit #: [id number] Date: 05/17/2018 9:10:00 AMCompleted Date: 05/17/2018 09:08 AMRequesting Provider: KALPESH PANDEY Attending Provider: KALPESH PANDEY Report Copy To: Signs & Symptoms: S62.625D Disp fx of middle phalanx of left ring finger, 7thD [id number]: AthenaComments: , , , Ordering Savannah PANDEY PA-C , Exam: HAND LEFT 2 VWSAccession #: [id number] =========HAND LEFT 2 VWS 05/17/2018 9:08 AM EDT SIGNS AND SYMPTOMS: S62.625D Disp fx of middle phalanx of left ring finger, 7thD I10 TECHNOLOGIST COMMENTS: left hand 4th digit pain surgery 03/16/18 f/u QUESTION FOR THE RADIOLOGIST: , , , Ordering Savannah PANDEY PA-C , PROTOCOL: AP(PA) and Lateral views were obtained. COMPARISON: April 26, 2018 FINDINGS: Soft tissues:Improved swelling Bones:Removal of K wires from the ring finger middle phalanx fracture which is healing in good alignment Joints:Unchanged IMPRESSION: Healing ring finger middle phalanx fracture with K wire removal Electronically signed by:Korey Quispe. Transcribed by: [email or web address], User Resident: Electronically Signed by: KOREY QUISPE @ 05/17/2018 12:41 PM Normal [facility] Comment on above: Order Comment: , , , Ordering Savannah PANDEY PA-C , HAND LEFT 2 VWSon 04-26-2018 HAND LEFT [address] [facility] [address] [place] [address] ==Patient Name: ANDREA GAMBOA : 1970ex: MAge: Race: WhiteMRN: [id number]. Location: 84Patient Status: Date: 04/26/2018 8:05:00 AMCompleted Date: 04/26/2018 08:07 AMRequesting Provider: KALPESH PANDEY Attending Provider: Report Copy To: Signs & Symptoms: S62.625D Disp fx of middle phalanx of left ring finger, 7thD [id number]: AthenaComments: , Views (X-RAY, HAND): PA, Lateral , Views (X-RAY, HAND): PA, Lateral , , , Ordering Provider - KALPESH PANDEY PA-C , Exam: HAND LEFT 2 VWSAccession #: [id number] =========HAND LEFT 2 VWS 04/26/2018 8:07 AM EDT SIGNS AND SYMPTOMS: S62.625D Disp fx of middle phalanx of left ring finger, 7thD I10 TECHNOLOGIST COMMENTS: pt states having surgery to 4th digit of left hand on 03-15-18. ortho check QUESTION FOR THE RADIOLOGIST: , Views (X-RAY, HAND): PA, Lateral , Views (X-RAY, HAND): PA, Lateral , , , Ordering Provider - KALPESH PANDEY PA-C , PROTOCOL: AP(PA) and Lateral views were obtained. COMPARISON: April 17, 2018 FINDINGS: Soft tissues:Unchanged Bones:Unchanged Joints:Unchanged IMPRESSION: K wire fixation of ring finger middle phalanx fracture in good alignment but currently no bony bridging Electronically signed by:Korey Quispe. Transcribed by: [email or web address], User Resident: Electronically Signed by: KOREY QUISPE @ 04/26/2018 01:39 PM [address] [facility] Comment on above: Order Comment: , Views (X-RAY, HAND): PA , Lateral , Views (X-RAY, HAND): PA, Lateral , , , Ordering Provider - KALPESH PANDEY PA-C , HAND LEFT 3 [facility] 04-17-2018 [facility] [address] [place] [address] ==Patient Name: ANDREA GAMBOA : 1970ex: MAge: Race: WhiteMRN: [id number]. Location: 84Patient Status: Date: 04/17/2018 9:25:00 AMCompleted Date: 04/17/2018 09:23 AMRequesting Provider: BEATRIZ SCHULTZ Attending Provider: Report Copy To: Signs & Symptoms: S62.625D Disp fx of middle phalanx of left ring finger, 7thD N02Fbeader: AthenaComments: , Views (X-RAY, HAND): Radiologic Protocol , Weight Bearing?: N , Views (X-RAY, HAND): Radiologic Protocol , Weight Bearing?: N , , , Ordering Provider - BEATRIZ SCHULTZ PA-C , Exam: HAND LEFT 3 VWSAccession #: [id number] =========HAND LEFT 3 VWS 04/17/2018 9:23 AM EDT SIGNS AND SYMPTOMS: S62.625D Disp fx of middle phalanx of left ring finger, 7thD I10 TECHNOLOGIST COMMENTS: left hand 4th digit surgery x about 3 weeks ago follow up QUESTION FOR THE RADIOLOGIST: , Views (X-RAY, HAND): Radiologic Protocol , Weight Bearing?: N , Views (X-RAY, HAND): Radiologic Protocol , Weight Bearing?: N , , , Ordering Provider - BEATRIZ SCHULTZ PA-C , PROTOCOL: AP,Lateral and Oblique views were obtained. COMPARISON: March 27, 2018 FINDINGS: Soft tissues:Unchanged Bones:Unchanged Joints:Unchanged IMPRESSION: K wire fixation of ring finger middle phalanx fracture in alignment but with limited healing Electronically signed by:Korey Quispe. Transcribed by: [email or web address], User Resident: Electronically Signed by: KOREY QUISPE @ 04/17/2018 03:45 PM [address] [facility] Comment on above: Order Comment: , Views (X-RAY, HAND): Ra diologic Protocol , Weight Bearing?: N , Views (X-RAY, HAND): Radiologic Protocol , Weight Bearing?: N , , , Ordering Provider - BEATRIZ SCHULTZ PA-C , HAND LEFT 3 Son 03-27-2018 HAND LEFT [address] [facility] [address] [place] [address] ==Patient Name: ANDREA GAMBOA : 1970ex: MAge: Race: WhiteMRN: [id number]. Location: 84Patient Status: Date: 03/27/2018 10:05:00 AMCompleted Date: 03/27/2018 10:06 AMRequesting Provider: BEATRIZ SCHULTZ Attending Provider: Report Copy To: Signs & Symptoms: S62.623B Disp fx of middle phalanx of left middle finger, 7thB T04Xjnaexl: AthenaComments: , Views (X-RAY, HAND): Radiologic Protocol , Weight Bearing?: N , With or Without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
--- NOTE | 2024-03-15 10:41 | XR_ITS ---
The [address] [address] Patient Name: ERIN GAMBOA MRN: [id number] date: 1970 Sex: M Assigned Patient Location: [facility] Current Patient Location: Accession/Order Number: [id number] Exam Date: 03/15/2024 10:50 Report Date: 03/18/2024 10:10 At the request of: ALMA LANDIN Procedure: XR elbow LT min 3V PROCEDURE: XR elbow LT min 3V HISTORY: Left elbow pain COMPARISON: XR form left 07/04/2016 FINDINGS: BONES:No fracture of radial head with slight osseous irregularity along the articular surface. Degenerative osteophyte along the lateral margin. Chronic separate ossification adjacent the triceps tendon insertion into the olecranon favoring sequela of remote injury. Small degenerative osteophytes along the articular margins of the coronoid process and humeral condyles. SOFT TISSUES:No visible soft tissue swelling. EFFUSION:None visible. OTHER: Negative. XR/XR elbow LT min 3V IMPRESSION: 1. No appreciable acute abnormality. 2. Moderate degenerative changes and sequela of remote trauma. Electronically authenticated by: DOT MARKS Date: 03/18/2024 10:10
== END 2024-03-15 10:36 | disposition home or self-care (01) ==
LOC: RAD 10:37
PROVIDERS: PCP Nurse Practitioner; Visit Provider Nurse Practitioner
DX: M25.522 Pain in left elbow (principal)
CPT/HCPCS: 73080

== ENCOUNTER 2024-12-13 07:45 | Outpatient (OUT) | payer OTHER, SELFPAY ==
[2024-12-13 08:15] LABS: Basophils Absolute Auto 0.1 10^3/uL (0.0-0.1); Basophils Percent Auto 1.4 % (0.2-2.0); Eosinophils Absolute Auto 0.6 10^3/uL (0.0-0.7); Eosinophils Percent Auto 8.5 % (0.9-7.0); Hematocrit 46.2 % (42.0-54.0); Hemoglobin 16.2 g/dL (14.0-18.0); Immature Granulocytes Abs Auto 0.02 10^3/uL (0.00-0.03); Immature Granulocytes Pct Auto 0.3 % (0.0-0.5); Lymphocytes Absolute Auto 2.4 10^3/uL (1.2-3.8); Lymphocytes Percent Auto 34.3 % (20.5-60.0); Mean Corpuscular HGB Conc 35.1 g/dL (29.9-35.2); Mean Corpuscular Hemoglobin 31.8 pg (25.9-34.0); Mean Corpuscular Volume 90.8 fL (80.0-94.0); Mean Platelet Volume 9.6 fL (9.5-13.5); Monocytes Absolute Auto 0.6 10^3/uL (0.3-0.8); Monocytes Percent Auto 9.1 % (1.7-12.0); Neutrophils Absolute Auto 3.3 10^3/uL (1.4-6.5); Neutrophils Percent Auto 46.4 % (43.0-75.0); Platelet Count 220 10^3/uL (150-450); Red Blood Count 5.09 10^6/uL (4.70-6.10); Red Cell Distribution Width 12.5 % (11.0-15.0); White Blood Count 7.1 10^3/uL (4.0-11.0)
[2024-12-13 08:42] LABS: Alanine Aminotransferase 47 U/L (16-63); Albumin Globulin Ratio 1.2; Alkaline Phosphatase 79 U/L (46-116); Anion Gap 12.2; Aspartate Amino Transferase 21 U/L (15-37); BUN Creatinine Ratio 16.3; Bilirubin Total 0.5 mg/dL (0.2-1.0); Calcium 9.1 mg/dL (8.5-10.1); Carbon Dioxide 29.6 mmol/L (21.0-32.0); Chloride 105 mmol/L (98-107); Chol HDL Ratio 5.8; Cholesterol 204 mg/dL (<=200); Estimated GFR (African America >60 (>=60 mL/min/1.73m^2); Estimated GFR (Non-African Ame >60 (>=60 mL/min/1.73m^2); Globulin 3.4 g/dL; Glucose 111 mg/dL (74-106); HDL Cholesterol 35 mg/dL (40-60); Potassium 3.8 mmol/L (3.5-5.1); Sodium 143 mmol/L (136-145); Thyroid Stimulating Hormone 1.305 uIU/mL (0.358-3.740); Total Protein 7.4 g/dL (6.4-8.2); Triglycerides 138 mg/dL (<=150); VLDL CHOLESTEROL 27.6 mg/dL
[2024-12-13 09:05] LABS: Prostate Specific Antigen Scrn 2.26 ng/mL (<=4.00)
== END 2024-12-13 07:46 | disposition home or self-care (01) ==
PROVIDERS: PCP Nurse Practitioner; Visit Provider Nurse Practitioner
DX: Z00.00 Encounter for general adult medical examination without abnormal findings (principal); I10 Essential (primary) hypertension; Z13.220 Encounter for screening for lipoid disorders; Z12.5 Encounter for screening for malignant neoplasm of prostate
CPT/HCPCS: 36415; 80053; 80061; 84443; 85025; G0103